=== PATIENT | female | born 1955 ===

== ENCOUNTER 2021-01-19 10:41 | Outpatient (REF) | payer OTHER, SELFPAY ==
[2021-01-19 10:48] LABS: MANUAL DIFF FLAG NO
[2021-01-19 11:04] LABS: Basophils Absolute Auto 0.1 X10*3/uL (0.0-0.2); Basophils Percent Auto 0.9 % (0-2); Eosinophils Absolute Auto 2.1 X10*3/uL (0.0-0.4); Eosinophils Percent Auto 30.6 % (0-4); Hematocrit 30.9 % (37-47); Hemoglobin 10.6 g/dl (12.0-16.0); Imm Gran Abs Auto 0.02 X10*3/uL (0.00-0.03); Imm Gran Pct Auto 0.3 % (0.0-0.4); Lymphocytes Absolute Auto 0.7 X10*3/uL (1.2-4.9); Lymphocytes Percent Auto 10.3 % (20-40); Mean Corpuscular HGB Conc 34.3 g/dl (31.0-35.0); Mean Corpuscular Hemoglobin 32.9 pg (27.0-33.0); Mean Platelet Volume 9.7 fL (9.4-12.3); Monocytes Absolute Auto 0.7 X10*3/uL (0.1-1.2); Monocytes Percent Auto 10.9 % (2-11); Neutrophils Absolute Auto 3.2 X10*3/uL (2.0-8.3); Platelet Count 246 X10*3/uL (160-400); Red Blood Count 3.22 X10*6/uL (4.20-5.50); Red Cell Distribution Width 12.9 % (11.0-16.0); White Blood Count 6.8 X10*3/uL (4.8-10.8)
[2021-01-19 11:28] LABS: Glucose Urine UA NEG (NEG); Leukocyte Esterase Urine TRACE (NEG); Nitrite Urine NEG (NEG); Urine Blood NEG (NEG); Urine Ketones NEG (NEG); Urine Protein NEG (NEG-TRACE)
[2021-01-19 11:31] LABS: Appearance Urine HAZY; Color Urine YELLOW
[2021-01-19 11:40] LABS: Alanine Aminotransferase 10 U/L (0-31); Albumin Level 3.7 g/dL (3.5-5.0); Alkaline Phosphatase 77 U/L (39-117); Anion Gap 11 (12-20); Aspartate Amino Transferase 16 U/L (5-31); Bilirubin Total 0.6 mg/dL (0.0-1.0); Blood Urea Nitrogen 11 mg/dL (9-16); Calcium 8.6 mg/dL (8.4-10.2); Carbon Dioxide 27 mmol/L (22-29); Chloride 104 mmol/L (96-108); Cholesterol 203 mg/dL; Estimated Glomerular Filt Rate > 60; Glucose Fasting 94 mg/dL (60-99); HDL Cholesterol 61 mg/dL; LDL Cholesterol Calculated 131 mg/dl; Sodium 138 mmol/L (135-145); Total Protein 6.3 g/dL (6.5-8.0); Triglycerides 57 mg/dL
[2021-01-19 12:04] LABS: TSH reflex Free T4 5.62 uIU/mL (0.32-4.0); Vitamin D 25-OH Total 32.3 ng/mL (>30)
[2021-01-19 12:38] LABS: RBC Urine 0-2 /HPF (0); Renal Epithelial Cells Urine 3+ /LPF
[2021-01-19 12:42] LABS: Free T4 (Free Thyroxine) 0.78 ng/dL (0.71-1.85)
== END 2021-01-19 10:42 | disposition home or self-care (01) ==
LOC: HO.LNP 10:41
PROVIDERS: PCP Internal Medicine; Visit Provider Internal Medicine
DX: Z00.00 Encounter for general adult medical examination without abnormal findings (principal); E06.3 Autoimmune thyroiditis; E78.00 Pure hypercholesterolemia, unspecified
CPT/HCPCS: 80053; 80061; 81001; 81003; 82306; 84439; 84443; 85025

== ENCOUNTER 2021-07-21 10:23 | Outpatient (REF) | payer MEDICARE, SELFPAY ==
[2021-07-21 11:52] LABS: Free T4 (Free Thyroxine) 0.93 ng/dL (0.71-1.85)
== END 2021-07-21 10:24 | disposition home or self-care (01) ==
LOC: HO.LNP 10:23
PROVIDERS: Visit Provider Internal Medicine
DX: E06.3 Autoimmune thyroiditis (principal)
CPT/HCPCS: 84439; 84443

== ENCOUNTER 2021-08-01 14:54 | Outpatient (REF) | payer MEDICARE, SELFPAY ==
[2021-08-01 14:56] LABS: MANUAL DIFF FLAG NO
[2021-08-01 15:10] LABS: Basophils Percent Auto 0.8 % (0-2); Eosinophils Absolute Auto 0.7 X10*3/uL (0.0-0.4); Eosinophils Percent Auto 14.8 % (0-4); Hematocrit 33.1 % (37-47); Hemoglobin 11.3 g/dl (12.0-16.0); Imm Gran Abs Auto 0.01 X10*3/uL (0.00-0.03); Imm Gran Pct Auto 0.2 % (0.0-0.4); Lymphocytes Absolute Auto 0.9 X10*3/uL (1.2-4.9); Lymphocytes Percent Auto 19.1 % (20-40); Mean Corpuscular HGB Conc 34.1 g/dl (31.0-35.0); Mean Corpuscular Hemoglobin 31.7 pg (27.0-33.0); Mean Platelet Volume 9.1 fL (9.4-12.3); Monocytes Absolute Auto 0.5 X10*3/uL (0.1-1.2); Monocytes Percent Auto 9.9 % (2-11); Neutrophils Absolute Auto 2.7 X10*3/uL (2.0-8.3); Neutrophils Percent Auto 55.2 % (45-73); Platelet Count 256 X10*3/uL (160-400); Red Blood Count 3.56 X10*6/uL (4.20-5.50); White Blood Count 4.9 X10*3/uL (4.8-10.8)
[2021-08-01 15:49] LABS: Iron 116 mcg/dL (30-160); Percent Iron Saturation 36 % (15-50); Total Iron Binding Capacity 320 mcg/dL (228-428); Unsaturated Iron Binding 204 ug/dL
== END 2021-08-01 14:55 | disposition home or self-care (01) ==
LOC: HO.LNP 14:54
PROVIDERS: Visit Provider Internal Medicine
DX: D64.9 Anemia, unspecified (principal)
CPT/HCPCS: 83540; 85025

== ENCOUNTER 2021-10-19 10:33 | Outpatient (REF) | payer MEDICARE, SELFPAY ==
[2021-10-19 10:37] LABS: MANUAL DIFF FLAG NO
[2021-10-19 10:59] LABS: Basophils Percent Auto 0.8 % (0-2); Eosinophils Absolute Auto 0.5 X10*3/uL (0.0-0.4); Hematocrit 36.3 % (37.0-47.0); Hemoglobin 12.4 g/dl (12.0-16.0); Imm Gran Abs Auto 0.02 X10*3/uL (0.00-0.03); Imm Gran Pct Auto 0.4 % (0.0-0.4); Lymphocytes Absolute Auto 1.1 X10*3/uL (1.2-4.9); Lymphocytes Percent Auto 21.8 % (20-40); Mean Corpuscular HGB Conc 34.2 g/dl (31.0-35.0); Mean Corpuscular Hemoglobin 32.2 pg (27.0-33.0); Mean Corpuscular Volume 94.3 fL (80.0-98.0); Mean Platelet Volume 9.4 fL (9.4-12.3); Monocytes Absolute Auto 0.6 X10*3/uL (0.1-1.2); Monocytes Percent Auto 11.4 % (2-11); Neutrophils Absolute Auto 2.7 x10*3/uL (2.0-8.3); Neutrophils Percent Auto 54.6 % (45-73); Platelet Count 254 X10*3/uL (160-400); Red Blood Count 3.85 X10*6/uL (4.20-5.50); Red Cell Distribution Width 11.9 % (11.0-16.0); White Blood Count 4.9 X10*3/uL (4.8-10.8)
[2021-10-19 11:08] LABS: Estimated Average Glucose 94 mg/dL; Hemoglobin A1C 101.8975 umol/L; Hemoglobin A1c % 4.9 %
[2021-10-19 11:16] LABS: Iron 84 mcg/dL (30-160); Percent Iron Saturation 25 % (15-50); Total Iron Binding Capacity 334 mcg/dL (228-428); Unsaturated Iron Binding 250 ug/dL
== END 2021-10-19 10:34 | disposition home or self-care (01) ==
LOC: HO.LNP 10:33
PROVIDERS: Visit Provider Internal Medicine
DX: D50.9 Iron deficiency anemia, unspecified (principal)
CPT/HCPCS: 83036; 83540; 85025

== ENCOUNTER 2022-01-22 11:26 | Outpatient (REF) | payer MEDICARE, SELFPAY ==
[2022-01-22 11:29] LABS: MANUAL DIFF FLAG NO
[2022-01-22 11:39] LABS: Basophils Percent Auto 0.9 % (0-2); Eosinophils Absolute Auto 0.5 X10*3/uL (0.0-0.4); Eosinophils Percent Auto 10.4 % (0-4); Hematocrit 35.5 % (37.0-47.0); Hemoglobin 11.6 g/dl (12.0-16.0); Imm Gran Abs Auto 0.01 X10*3/uL (0.00-0.03); Imm Gran Pct Auto 0.2 % (0.0-0.4); Lymphocytes Percent Auto 23.6 % (20-40); Mean Corpuscular HGB Conc 32.7 g/dl (31.0-35.0); Mean Corpuscular Volume 98.1 fL (80.0-98.0); Mean Platelet Volume 9.8 fL (9.4-12.3); Monocytes Absolute Auto 0.6 X10*3/uL (0.1-1.2); Monocytes Percent Auto 13.6 % (2-11); Neutrophils Absolute Auto 2.3 x10*3/uL (2.0-8.3); Neutrophils Percent Auto 51.3 % (45-73); Platelet Count 233 X10*3/uL (160-400); Red Blood Count 3.62 X10*6/uL (4.20-5.50); Red Cell Distribution Width 11.9 % (11.0-16.0); White Blood Count 4.4 X10*3/uL (4.8-10.8)
[2022-01-22 11:56] LABS: Appearance Urine CLEAR; Color Urine YELLOW; Glucose Urine UA NEG (NEG); Leukocyte Esterase Urine 3+ (NEG); Nitrite Urine NEG (NEG); Specific Gravity - Urine 1.015 (1.005-1.025); Urine Blood TRACE (NEG); Urine Ketones NEG (NEG); Urine Protein NEG (NEG-TRACE)
[2022-01-22 11:58] LABS: Alanine Aminotransferase 11 U/L (0-31); Albumin Level 3.8 g/dL (3.5-5.0); Alkaline Phosphatase 98 U/L (39-117); Anion Gap 9 (12-20); Aspartate Amino Transferase 16 U/L (5-31); Bilirubin Total 0.6 mg/dL (0.0-1.0); Blood Urea Nitrogen 14 mg/dL (9-16); Carbon Dioxide 27 mmol/L (22-29); Chloride 106 mmol/L (96-108); Cholesterol 234 mg/dL; Estimated Glomerular Filt Rate > 60; Glucose Fasting 99 mg/dL (60-99); HDL Cholesterol 71 mg/dL; Iron 134 mcg/dL (30-160); LDL Cholesterol Calculated 151 mg/dl; Percent Iron Saturation 43 % (15-50); Potassium 4.3 mmol/L (3.3-5.1); Sodium 138 mmol/L (135-145); Total Iron Binding Capacity 311 mcg/dL (228-428); Total Protein 6.5 g/dL (6.5-8.0); Triglycerides 61 mg/dL; Unsaturated Iron Binding 177 ug/dL
[2022-01-22 12:07] LABS: TSH reflex Free T4 3.17 uIU/mL (0.32-4.0)
[2022-01-22 12:29] LABS: Bacteria Urine 1+ /LPF; Squamous Epithelial Cell Urine 1+ /LPF; WBC Clumps Urine NOTED; WBC Urine 30-49 /HPF (0-4)
[2022-01-22 12:30] LABS: Oval Fat Bodies Urine NOTED
== END 2022-01-22 11:27 | disposition home or self-care (01) ==
LOC: HO.LNP 11:26
PROVIDERS: PCP Internal Medicine; Visit Provider Internal Medicine
DX: Z00.00 Encounter for general adult medical examination without abnormal findings (principal); E78.00 Pure hypercholesterolemia, unspecified; E06.3 Autoimmune thyroiditis; D50.9 Iron deficiency anemia, unspecified
CPT/HCPCS: 80053; 80061; 81001; 83540; 84443; 85025

== ENCOUNTER → 2023-01-07 10:03 | Outpatient (BNVA) | payer MEDICARE, SELFPAY | PROVIDERS: PCP Internal Medicine; Referring Provider Internal Medicine; Visit Provider Surgery | DX: S30.861A Insect bite (nonvenomous) of abdominal wall, initial encounter (principal) | CPT/HCPCS: 10120; 11400; 99202 ==

== ENCOUNTER 2023-01-07 10:48 | Outpatient (REF) | payer MEDICARE, SELFPAY | END 2023-01-07 10:49 | disposition home or self-care (01) | LOC: HO.LNP 10:48 | PROVIDERS: Visit Provider Internal Medicine | DX: Z13.89 Encounter for screening for other disorder (principal) | CPT/HCPCS: 87798 ==

== ENCOUNTER → 2023-01-16 11:28 | Outpatient (BNVA) | payer MEDICARE, SELFPAY | PROVIDERS: PCP Internal Medicine; Visit Provider Surgery ==

== ENCOUNTER 2023-02-01 11:55 | Outpatient (REF) | payer MEDICARE, SELFPAY ==
[2023-02-01 11:58] LABS: MANUAL DIFF FLAG NO
[2023-02-01 12:22] LABS: Basophils Absolute Auto 0.1 X10*3/uL (0.0-0.2); Basophils Percent Auto 1.2 % (0-2); Eosinophils Absolute Auto 0.4 X10*3/uL (0.0-0.4); Eosinophils Percent Auto 7.1 % (0-4); Hemoglobin 12.4 g/dl (12.0-16.0); Imm Gran Abs Auto 0.01 X10*3/uL (0.00-0.03); Imm Gran Pct Auto 0.2 % (0.0-0.4); Lymphocytes Absolute Auto 1.6 X10*3/uL (1.2-4.9); Lymphocytes Percent Auto 30.9 % (20-40); Mean Corpuscular HGB Conc 33.5 g/dl (31.0-35.0); Mean Corpuscular Volume 95.4 fL (80.0-98.0); Mean Platelet Volume 9.7 fL (9.4-12.3); Monocytes Absolute Auto 0.6 X10*3/uL (0.1-1.2); Monocytes Percent Auto 10.9 % (2-11); Neutrophils Absolute Auto 2.6 x10*3/uL (2.0-8.3); Neutrophils Percent Auto 49.7 % (45-73); Platelet Count 260 X10*3/uL (160-400); Red Blood Count 3.88 X10*6/uL (4.20-5.50); Red Cell Distribution Width 11.9 % (11.0-16.0); White Blood Count 5.2 X10*3/uL (4.8-10.8)
[2023-02-01 12:42] LABS: Alanine Aminotransferase 13 U/L (0-31); Albumin Level 3.8 g/dL (3.5-5.0); Alkaline Phosphatase 77 U/L (39-117); Anion Gap 12 (12-20); Aspartate Amino Transferase 18 U/L (5-31); Bilirubin Total 0.9 mg/dL (0.0-1.0); Blood Urea Nitrogen 10 mg/dL (9-16); Calcium 8.9 mg/dL (8.4-10.2); Carbon Dioxide 28 mmol/L (22-29); Chloride 108 mmol/L (96-108); Cholesterol 280 mg/dL; Estimated Glomerular Filt Rate > 60; Glucose Fasting 95 mg/dL (60-99); HDL Cholesterol 71 mg/dL; Iron 124 mcg/dL (30-160); LDL Cholesterol Calculated 193 mg/dl; Percent Iron Saturation 45 % (15-50); Potassium 4.5 mmol/L (3.3-5.1); Sodium 143 mmol/L (135-145); Total Iron Binding Capacity 274 mcg/dL (228-428); Total Protein 6.3 g/dL (6.5-8.0); Triglycerides 80 mg/dL; Unsaturated Iron Binding 150 ug/dL
[2023-02-01 12:59] LABS: TSH reflex Free T4 5.03 uIU/mL (0.32-4.0)
== END 2023-02-01 11:56 | disposition home or self-care (01) ==
LOC: HO.LNP 11:55
PROVIDERS: Visit Provider Internal Medicine
DX: Z00.00 Encounter for general adult medical examination without abnormal findings (principal); E78.00 Pure hypercholesterolemia, unspecified; E06.3 Autoimmune thyroiditis; D50.9 Iron deficiency anemia, unspecified
CPT/HCPCS: 80053; 80061; 83540; 84439; 84443; 85025

== ENCOUNTER 2023-02-04 15:53 | Outpatient (REF) | payer MEDICARE, SELFPAY ==
[2023-02-04 16:49] LABS: Appearance Urine Clear; Color Urine Yellow; Glucose Urine UA Negative (Negative); Leukocyte Esterase Urine Small (1+) (Negative); Nitrite Urine Negative (Negative); Specific Gravity - Urine <= 1.005 (1.005-1.025); UMIC TRIGGER UACC YES; Urine Blood Trace (Negative); Urine Ketones Negative (Negative); Urine Protein Negative (Neg-Trace)
[2023-02-04 16:58] LABS: Bacteria Urine Trace (None Seen); Hyaline Casts Urine 0-2 /LPF (0-2); RBC Urine 0-2 /HPF (0-2); Squamous Epithelial Cell Urine 0-2 /HPF (0-2); UACC Culture Trigger YES; WBC Urine 0-5 /HPF (0-5)
== END 2023-02-04 15:54 | disposition home or self-care (01) ==
LOC: HO.LNP 15:53
PROVIDERS: Visit Provider Internal Medicine
DX: M81.0 Age-related osteoporosis without current pathological fracture (principal); D50.9 Iron deficiency anemia, unspecified; E78.00 Pure hypercholesterolemia, unspecified; R82.90 Unspecified abnormal findings in urine
CPT/HCPCS: 81001; 87086

== ENCOUNTER 2023-03-07 11:01 | Outpatient (REF) | payer MEDICARE, SELFPAY ==
[2023-03-07 11:23] LABS: Appearance Urine Clear; Color Urine Yellow; Glucose Urine UA Negative (Negative); Leukocyte Esterase Urine Negative (Negative); Nitrite Urine Negative (Negative); Specific Gravity - Urine <= 1.005 (1.005-1.025); Urine Blood Negative (Negative); Urine Ketones Negative (Negative); Urine Protein Negative (Neg-Trace)
[2023-03-07 11:27] LABS: Bacteria Urine None Seen (None Seen); Hyaline Casts Urine 0-2 /LPF (0-2); RBC Urine 0-2 /HPF (0-2); Squamous Epithelial Cell Urine 0-2 /HPF (0-2); WBC Urine 0-5 /HPF (0-5)
== END 2023-03-07 11:02 | disposition home or self-care (01) ==
LOC: HO.LNP 11:01
PROVIDERS: Visit Provider Internal Medicine
DX: R31.9 Hematuria, unspecified (principal)
CPT/HCPCS: 81001

== ENCOUNTER 2023-04-08 10:35 | Outpatient (REF) | payer MEDICARE, SELFPAY ==
[2023-04-08 11:35] LABS: Cholesterol 281 mg/dL; HDL Cholesterol 75 mg/dL; LDL Cholesterol Calculated 192 mg/dl; Triglycerides 72 mg/dL
[2023-04-08 11:51] LABS: TSH reflex Free T4 4.08 uIU/mL (0.32-4.0)
[2023-04-08 12:56] LABS: Free T4 (Free Thyroxine) 0.87 ng/dL (0.71-1.85)
== END 2023-04-08 10:36 | disposition home or self-care (01) ==
LOC: HO.LNP 10:35
PROVIDERS: Visit Provider Internal Medicine
DX: E78.00 Pure hypercholesterolemia, unspecified (principal); E06.3 Autoimmune thyroiditis
CPT/HCPCS: 80061; 84439; 84443

== ENCOUNTER 2024-01-30 11:10 | Outpatient (REF) | payer MEDICARE, SELFPAY ==
[2024-01-30 11:15] LABS: MANUAL DIFF FLAG NO
[2024-01-30 12:15] LABS: Appearance Urine Clear; Color Urine Yellow; Glucose Urine UA Negative (Negative); Leukocyte Esterase Urine Moderate (2+) (Negative); Nitrite Urine Negative (Negative); Specific Gravity - Urine 1.015 (1.005-1.025); UMIC TRIGGER UACC YES; Urine Blood Negative (Negative); Urine Ketones Negative (Negative); Urine Protein Negative (Neg-Trace)
[2024-01-30 12:18] LABS: Basophils Absolute Auto 0.1 X10*3/uL (0.0-0.2); Eosinophils Absolute Auto 0.4 X10*3/uL (0.0-0.4); Eosinophils Percent Auto 8.4 % (0-4); Hematocrit 35.7 % (37.0-47.0); Hemoglobin 12.1 g/dl (12.0-16.0); Imm Gran Abs Auto 0.01 X10*3/uL (0.00-0.03); Imm Gran Pct Auto 0.2 % (0.0-0.4); Lymphocytes Absolute Auto 1.7 X10*3/uL (1.2-4.9); Lymphocytes Percent Auto 33.3 % (20-40); Mean Corpuscular HGB Conc 33.9 g/dl (31.0-35.0); Mean Corpuscular Hemoglobin 32.3 pg (27.0-33.0); Mean Corpuscular Volume 95.2 fL (80.0-98.0); Mean Platelet Volume 9.7 fL (9.4-12.3); Monocytes Absolute Auto 0.6 X10*3/uL (0.1-1.2); Monocytes Percent Auto 11.1 % (2-11); Neutrophils Absolute Auto 2.4 x10*3/uL (2.0-8.3); Platelet Count 279 X10*3/uL (160-400); Red Blood Count 3.75 X10*6/uL (4.20-5.50); White Blood Count 5.2 X10*3/uL (4.8-10.8)
[2024-01-30 12:21] LABS: Bacteria Urine None Seen (None Seen); Hyaline Casts Urine 0-2 /LPF (0-2); RBC Urine 0-2 /HPF (0-2); Squamous Epithelial Cell Urine 0-2 /HPF (0-2); UACC Culture Trigger YES
[2024-01-30 13:20] LABS: Alanine Aminotransferase 15 U/L (0-31); Albumin Level 3.9 g/dL (3.5-5.0); Alkaline Phosphatase 73 U/L (39-117); Anion Gap 8 (12-20); Aspartate Amino Transferase 22 U/L (5-31); Bilirubin Total 0.9 mg/dL (0.0-1.0); Blood Urea Nitrogen 12 mg/dL (9-16); Calcium 9.9 mg/dL (8.4-10.2); Carbon Dioxide 30 mmol/L (22-29); Chloride 105 mmol/L (96-108); Cholesterol 240 mg/dL (<200); Estimated Glomerular Filt Rate > 60; Glucose Fasting 96 mg/dL (60-99); HDL Cholesterol 67 mg/dL (>40); Iron 148 mcg/dL (30-160); LDL Cholesterol Calculated 161 mg/dL (<100); Percent Iron Saturation 54 % (15-50); Potassium 4.1 mmol/L (3.3-5.1); Sodium 139 mmol/L (135-145); Total Iron Binding Capacity 274 mcg/dL (228-428); Total Protein 6.7 g/dL (6.5-8.0); Triglycerides 64 mg/dL (<150); Unsaturated Iron Binding 126 ug/dL
[2024-01-30 13:24] LABS: TSH reflex Free T4 3.61 uIU/mL (0.32-4.0)
== END 2024-01-30 11:11 | disposition home or self-care (01) ==
LOC: HO.LNP 11:10
PROVIDERS: Visit Provider Internal Medicine
DX: Z00.00 Encounter for general adult medical examination without abnormal findings (principal); E06.3 Autoimmune thyroiditis; D50.9 Iron deficiency anemia, unspecified; E78.00 Pure hypercholesterolemia, unspecified; R82.90 Unspecified abnormal findings in urine
CPT/HCPCS: 80053; 80061; 81001; 83540; 84443; 85025; 87086

== ENCOUNTER 2025-02-04 10:09 | Outpatient (REF) | payer MEDICARE, SELFPAY ==
[2025-02-04 10:12] LABS: MANUAL DIFF FLAG NO
[2025-02-04 11:08] LABS: Basophils Percent Auto 0.8 % (0-2); Eosinophils Absolute Auto 0.4 X10*3/uL (0.0-0.4); Eosinophils Percent Auto 8.1 % (0-4); Hemoglobin 12.4 g/dl (12.0-16.0); Imm Gran Abs Auto 0.02 X10*3/uL (0.00-0.03); Imm Gran Pct Auto 0.4 % (0.0-0.4); Lymphocytes Absolute Auto 1.5 X10*3/uL (1.2-4.9); Lymphocytes Percent Auto 30.2 % (20-40); Mean Corpuscular HGB Conc 34.4 g/dl (31.0-35.0); Mean Platelet Volume 9.2 fL (9.4-12.3); Monocytes Absolute Auto 0.5 X10*3/uL (0.1-1.2); Monocytes Percent Auto 9.3 % (2-11); Neutrophils Absolute Auto 2.6 x10*3/uL (2.0-8.3); Neutrophils Percent Auto 51.2 % (45-73); Platelet Count 274 X10*3/uL (160-400); Red Blood Count 3.87 X10*6/uL (4.20-5.50); Red Cell Distribution Width 12.1 % (11.0-16.0); White Blood Count 5.1 X10*3/uL (4.8-10.8)
[2025-02-04 11:16] LABS: Appearance Urine Clear; Color Urine Yellow; Glucose Urine UA Negative (Negative); Leukocyte Esterase Urine Small (1+) (Negative); Nitrite Urine Negative (Negative); UMIC TRIGGER UACC YES; Urine Blood Negative (Negative); Urine Ketones Negative (Negative); Urine Protein Negative (Neg-Trace)
[2025-02-04 11:40] LABS: Alanine Aminotransferase 15 U/L (0-31); Albumin Level 3.8 g/dL (3.5-5.0); Alkaline Phosphatase 66 U/L (39-117); Anion Gap 9 (12-20); Aspartate Amino Transferase 25 U/L (5-31); Bilirubin Total 0.6 mg/dL (0.0-1.0); Blood Urea Nitrogen 12 mg/dL (9-16); Calcium 9.1 mg/dL (8.4-10.2); Carbon Dioxide 27 mmol/L (22-29); Chloride 106 mmol/L (96-108); Cholesterol 264 mg/dL (<200); Estimated Glomerular Filt Rate > 60; Glucose Fasting 94 mg/dL (60-99); HDL Cholesterol 69 mg/dL (>40); Iron 97 mcg/dL (30-160); LDL Cholesterol Calculated 180 mg/dL (<100); Percent Iron Saturation 38 % (15-50); Potassium 4.3 mmol/L (3.3-5.1); Sodium 138 mmol/L (135-145); TSH reflex Free T4 3.85 uIU/mL (0.32-4.0); Total Iron Binding Capacity 258 mcg/dL (228-428); Total Protein 6.8 g/dL (6.5-8.0); Triglycerides 76 mg/dL (<150); Unsaturated Iron Binding 161 ug/dL
--- OUTSIDE RECORDS SUMMARY | 2025-02-04 11:42 | XMS_ITS ---
Author Organization Barrera Wood MD Address [address] [place], [place] [id number] Care Team Providers Care Advisory Services Associate Name Role Phone IsraelIrvinn Primary Care Provider [phone] Results Component Value Reference Range Notes Complete Blood Count Auto Di ff (Not yet reviewed by provider) Interpretation: Performing Lab:[facility], [address] [place] [phone] Notes/Report: White Blood Count 5.1 4.8-10.8 X10*3/uL Red Blood Count 3.87 4.20-5.50 X10*6/uL Hemoglobin 12.4 12.0-16.0 g/dl Hematocrit 36.0 37.0-47.0 % Mean Corpuscular Volume 93.0 80.0-98.0 fL Mean Corpuscular Hemoglobin 32.0 27.0-33.0 pg Mean Corpuscular HGB Conc 34.4 31.0-35.0 g/dl Red Cell Distribution Width 12.1 11.0-16.0 % Platelet Count 274 160-400 X10*3/uL Mean Platelet Volume 9.2 9.4-12.3 fL Neutrophils Percent Auto 51.2 45-73 % Imm Gran Pct Auto 0.4 0.0-0.4 % Lymphocytes Percent Auto 30.2 20-40 % Monocytes Percent Auto 9.3 2-11 % Eosinophils Percent Auto 8.1 0-4 % Basophils Percent Auto 0.8 0-2 % NRBC Pct Auto 0.0 0.0-0.2 /100WBC Neutrophils Absolute Auto 2.6 2.0-8.3 x10*3/u L Imm Gran Abs Auto 0.02 0.00-0.03 X10*3/uL Lymphocytes Absolute Auto 1.5 1.2-4.9 X10*3/u L Monocytes Absolute Auto 0.5 0.1-1.2 X10*3/uL Eosinophils Absolute Auto 0.4 0.0-0.4 X10*3/u L Basophils Absolute Auto 0.0 0.0-0.2 X10*3/uL NRBC Abs Auto 0.000 0.0-0.012 X10*3/uL Comprehensive [place]. Panel Fa st (Not yet reviewed by provider) Interpretation: Performing Lab:[facility], [address] [place] [phone] Notes/Report: Sodium 138 135-145 mmol/L Potassium 4.3 3.3-5.1 mmol/L Chloride 106 96-108 mmol/L Carbon Dioxide 27 22-29 mmol/L Anion Gap 9 12-20 Blood Urea Nitrogen 12 9-16 mg/dL Creatinine 0.65 0.5-1.4 mg/dL Estimated Glomerular Filt Rate > 60 Chronic Kidney Disease: Estimated GFR < 60 mL/min/1.73m2 Severe Kidney Disease: Estimated GFR < 15 mL/min/1.73m2 Glucose Fasting 94 60-99 mg/dL Calcium 9.1 8.4-10.2 mg/dL Bilirubin Total 0.6 0.0-1.0 mg/dL Aspartate Amino Transferase 25 5-31 U/L Alanine Aminotransferase 15 0-31 U/L Total Protein 6.8 6.5-8.0 g/dL Albumin Level 3.8 3.5-5.0 g/dL Alkaline Phosphatase 66 39-117 U/L IRON PROFILE (Not yet revie wed by provider) Interpretation: Performing Lab:[facility], [address] [place] [phone] Notes/Report: Iron 97 30-160 mcg/dL Total Iron Binding Capacity 258 228-428 mcg/d L Percent Iron Saturation 38 15-50 % Unsaturated Iron Binding 161 Lipid Panel (Not yet reviewe d by provider) Interpretation: Performing Lab:[facility], [address] [place] [phone] Notes/Report: Triglycerides 76 <150 mg/dL Desirable Triglyceride: less than 150 mg/dL Borderline High Triglyceride 150-199 mg/dL High Triglyceride: 200-499 mg/dL Very High Triglyceride: greater than or equal to 5OO mg/dL Cholesterol 264 <200 mg/dL Desirable Cholesterol: less than 200 mg/dL Borderline High Cholesterol: 200-239 mg/dL High Cholesterol: greater than 239 mg/dL LDL Cholesterol Calculated 180 <100 mg/dL Desirable LDL: less than 100 mg/dL Near Optimal/Above Optimal LDL: 110-129 mg/dL Borderline High LDL: 130-159 mg/dL High LDL: 160-189 mg/dL Very High LDL: greater than or equal to 190 mg/dL HDL Cholesterol 69 >40 mg/dL Desirable HDL: greater than 40 mg/dL Note: This HDL assay may give artificially low results in patients with liver disease. TSH reflex Free T4 (Not yet reviewed by provider) Interpretation: Performing Lab:[facility], [address] [place] [phone] Notes/Report: TSH reflex Free T4 3.85 0.32-4.0 uIU/mL REASON FOR VISIT yearly fasting labs Encounters Encounter Location Date Provider Diagnosis Barrera Wood MD [address] [place] [address] Drive [address] [place], [place] [phone] 02/04/2025 Barrera Wood Blood tests for rout ine general physical examination Z00.00 ; Pure hypercholesterolemia E78.00 ; Shane's thyroiditis E06.3 and Iron deficiency anemia, unspecified iron deficiency anemia type D50.9 Assessments Encounter Date Diagnosis (ICD Code) Assessment Notes Treatment Notes Treatment Clinical Notes Section Notes 02/04/2025 Blood tests for rout ine general physical examination (ICD-10 - Z00.00) 02/04/2025 Pure hypercholesterolemia (ICD-10 - E78.00) 02/04/2025 Shane's thyroidi tis (ICD-10 - E06.3) 02/04/2025 Iron deficiency anem ia, unspecified iron deficiency anemia type (ICD-10 - D50.9) Plan Of Treatment Pending Test Test Name Order Date Complete Blood Count Auto Diff Comprehensive [place]. Panel Fast IRON PROFILE 02/04/2025 Lipid Panel 02/04/2025 TSH reflex Free T4 02/04/2025 UA ClnCatch+Micro w/rflx Cult 02/04/2025 Next Appt Details Provider Name:Barrera Kilgore ier, 02/08/2025 01:00:00 PM, [address], [address], [place], [place], [phone], Progress Notes * Michelle YOU LDOB:1954 (69 yo F)Acc No.[id number]:02/04/2025 Progress Note Patient:?Michelle YOU L Provider:?Barrera Wood MD :1955???Age:69 Y???Sex:Female D ate:02/04/2025 Address:[address] [place], [place] [id number] Subjective: * Chief Complaints: * ???1. Yearly fasting labs. * Medical History:? Objective: * Vitals:? Assessment: * Assessment: 1.?Blood tests for routine g eneral physical examination - Z00.00 (Primary)???2.?Pure hypercholesterolemia - E78.00???3.?Shane's thyroiditis - E06.3???4.?Iron deficiency anemia, unspecified iron deficiency anemia type - D50.9??? Plan: * Treatment: 2.?Pure hypercholesterolemia ?LAB: Complete Blood Count Auto Diff (Collection Date & Time - 02/04/2025 07:00 AM) ?LAB: Comprehensive [place]. Panel Fast (Collection Date & Time - 02/04/2025 07:00 AM) ?LAB: IRON PROFILE (Collection Date & Time - 02/04/2025 07:00 AM) ?LAB: Lipid Panel (Collection Date & Time - 02/04/2025 07:00 AM) ?LAB: TSH reflex Free T4 (Collection Date & Time - 02/04/2025 07:00 AM) ?LAB: UA ClnCatch+Micro w/rflx Cult 3.?Shane's thyroiditis?LAB: Complete Blood Count Auto Diff (Collection Date & Time - 02/04/2025 07:00 AM) ?LAB: Comprehensive [place]. Panel Fast (Collection Date & Time - 02/04/2025 07:00 AM) ?LAB: IRON PROFILE (Collection Date & Time 02/04/2025 07:00 AM) ?LAB: Lipid Panel (Collection Date & Time 02/04/2025 07:00 AM) ?LAB: TSH reflex Free T4 (Collection Date & Time - 02/04/2025 07:00 AM) ?LAB: UA ClnCatch+Micro w/rflx Cult 4.?Iron deficiency anemia, u nspecified iron deficiency anemia type?LAB: Complete Blood Count Auto Diff (Collection Date & Time - 02/04/2025 07:00 AM) ?LAB: Comprehensive [place]. Panel Fast (Collection Date & Time 02/04/2025 07:00 AM) ?LAB: IRON PROFILE (Collection Date & Time 02/04/2025 07:00 AM) ?LAB: Lipid Panel (Collection Date & Time 02/04/2025 07:00 AM) ?LAB: TSH reflex Free T4 (Collection Date & Time - 02/04/2025 07:00 AM) ?LAB: UA ClnCatch+Micro w/rflx Cult * Procedure Codes:?97016 VENIP UNCT, ROUTINE* * * The named appointment provid er may or may not be the originator of this progress note, and it is not deemed complete until electronically signed by the appointment provider. Sign off status: Pending * Provider:?Barrera Wood MD Date:?0 02/04/2025 Generated for Tara haile/Henry/Inezsmitting on:?02/04/2025 11:42 AM EDT
--- OUTSIDE RECORDS SUMMARY | 2025-02-04 11:42 | XMS_ITS ---
Author Organization Barrera Wood MD Address [address] [place], [place] [phone] Care Team Providers Care Tax Auditor Name Role Phone Israel Barrera Primary Care Provider Allergies No Known Allergies REASON FOR VISIT stomach issues diarrhea x 5 days Just returned from [place], Video [phone], Tested for Covid yesterday negative Medications Medication SIG (Take, Route, Frequency, Duration) Notes Start Date End Date Status Vitamin K2 100 MCG as directed Orally Active Magnesium 250 MG 1 tablet with a meal Orally Once a day for 30 day(s) Active Paxlovid (300/100) 20 x 150 MG & 10 x 100MG 3 tablets Orally Twice a day for 5 days 04/28/2024 Not-Taking Estrace 0.1 MG/GM as directed Vaginal Not-Taking Reclast 5 MG/100ML as directed Intravenous Active Calcium + D 600-200 MG-UNIT 1 tablet with food Orally Twice a day Active Vitamin B12 1000 MCG 1 tablet Orally Onc e a day for 30 day(s) Active Vitamin D 1000 UNIT 1 tablet Orally Once a day for 30 day(s) Active Vital Signs Height 61 in 11/10/2024 Weight 120 lbs 11/10/2024 BMI 22.67 kg/m2 11/10/2024 weight at home is 121 BP not taken no temp Encounters Encounter Location Date Provider Diagnosis Barrera Wood MD [address] [place] [address] [place] [phone] 11/10/2024 Barrera Wood Acute diarrhea R19.7 Assessments Encounter Date Diagnosis (ICD Code) Assessment Notes Treatment Notes Treatment Clinical Notes Section Notes 11/10/2024 Acute diarrhea (ICD-10 - R19.7) is getting better so no treatment needed and no cultures necessary although would not go to cooking class in 3 days Plan Of Treatment Treatment Notes Assessment Notes Acute diarrhea is getting better so no treatment needed and no cultures necessary although would not go to cooking class in 3 days Next Appt Details Provider Name:Barrera Kilgore ier, 02/08/2025 01:00:00 PM, [address] [place] [address], [place] [address], [place], [place], [phone], Progress Notes * Michelle YOU LDOB:1954 (69 yo F)Acc No.[id number]:11/10/2024 Patient:?Michelle YOU Provider:?Barrera Wood MD :1955???Age:69 Y???Sex:Female D ate:11/10/2024 Address:[address] [place], [place] [phone] Subjective: * Chief Complaints: * ???stomach issues diarrhea x 5 days Just returned from [facility] [phone] for Covid yesterday negative * HPI: ???Symptom(s):?Telehealth?Location of provider rendering services:?[address] [place] [address], Suite [facility],?Location of patient:?at address listed in demographics for today's visit,?Patient identification confirmed using:?Name, ,?Telehealth method:?Video conference where patient is visible to the provider of care,?Consent:?Patient verbally consented to treatment, Patient verbally consented to billing insurance company, Patient informed of any privacy concerns related to method of visit,?Total time spend talking with patient (minutes)?16.?patient is a 69 yo female video telehealth visit,? just [facility]. diarrhea slowly getting better. everyone else got covid.? is getting better.? there is a lot of norovirus. * ROS:?General/Constitutional:?Denies?Chills.?Denies?Fatigue.?Denies?Fever.?Denies?Headache.?ENT:?Patient denies?decreased sense of smell, any loss of taste, sore throat.?Denies?Sore throat.?Respiratory:?Denies?Cough.?Denies?Shortness of breath at rest.?Denies?Shortness of breath with exertion.?Gastrointestinal:?Denies?Abdominal pain.?Denies?Blood in stool.?Admits?Change in bowel habits.?Denies?Constipation.?Denies?Diarrhea.?Denies?Nausea.?Denies?Vomiting.?Musculoskeletal:?Patient denies?muscle aches.?Peripheral Vascular:?Patient denies?red and blue toes.? * Medical History:? * Surgical History:? * Hospitalization/Major Diagno stic Procedure:? * Medications:?TakingVitamin K 2 100 MCG Capsule as directed Orally Magnesium 250 MG Tablet 1 tablet with a meal Orally Once a day Vitamin B12 1000 MCG Tablet Extended Release 1 tablet Orally Once a day Vitamin D 1000 UNIT Tablet 1 tablet Orally Once a day Calcium + D 600-200 MG-UNIT Tablet 1 tablet with food Orally Twice a day Reclast 5 MG/100ML Solution as directed Intravenous Taking Vitamin K2 100 MCG Capsule as directed Orally Taking Magnesium 250 MG Tablet 1 tablet with a meal Orally Once a day Taking Vitamin B12 1000 MCG Tablet Extended Release 1 tablet Orally Once a day Taking Vitamin D 1000 UNIT Tablet 1 tablet Orally Once a day Taking Calcium + D 600-200 MG-UNIT Tablet 1 tablet with food Orally Twice a day Taking Reclast 5 MG/100ML Solution as directed Intravenous Not-Taking/PRNPaxlovid (300/100) 20 x 150 MG & 10 x 100MG Tablet Therapy Pack 3 tablets Orally Twice a day Estrace 0.1 MG/GM Cream as directed Vaginal Not-Taking/PRN Paxlovid (300/100) 20 x 150 MG & 10 x 100MG Tablet Therapy Pack 3 tablets Orally Twice a day Not-Taking/PRN Estrace 0.1 MG/GM Cream as directed Vaginal * Allergies:?N.K.D.A.yes[Aller gies Verified] Objective: * Vitals:?Ht: 61, Wt: 120, BMI :22.67, Wt-k.43. weight at home is 121? BP? not taken? ?no temp. * Examination: ???General Examination: ?GENERAL APPEARANCE:?alert, well hydrated, in no distress.? Assessment: * Assessment: 1.?Acute diarrhea - R19.7 (P rimary)??? Plan: * Treatment: * Procedure Codes:? * * Sign off status: Completed true * Provider:?Barrera Wood MD Date:?0 11/10/2024 Generated for Tara haile/Henry/Carrieitting on:?02/04/2025 11:42 AM EDT History and Physical Notes * HPI (History of Present Illness) Category Sub-Category Detail Notes Category Not es Symptom(s) Telehealth Location of [facility] rendering services:: [address], [address] patient is a 69 yo female video telehealth visit, [facility]. diarrhea slowly getting better. everyone else got covid. is getting better. there is a lot of norovirus Location of patient:: at address listed in demographics for today's visit Patient identification confirmed using:: Name, Telehealth method:: Video co nference where patient is visible to the provider of care Consent:: Patient verbally c onsented to treatment, Patient verbally consented to billing insurance company, Patient informed of any privacy concerns related to method of visit Total time spend talking with patient (m inutes): 16 Examination Category Sub-Category Detail Notes Category Not es General Examination GENERAL APPEARANCE: alert, w ell hydrated, in no distress
--- OUTSIDE RECORDS SUMMARY | 2025-02-04 11:43 | XMS_ITS ---
Author Organization Barrera Wood MD Address [address] [place] [phone] Care Team Providers Care Geophysical Prospecting Permit Agent Name Role Phone Barrera Wood Primary Care Provider REASON FOR VISIT Paxlovid for travel Medications Medication SIG (Take, Route, Frequency, Duration) Notes Start Date End Date Status Paxlovid (300/100) 20 x 150 MG & 10 x 100MG 3 tablets Orally Twice a day for 5 days 04/28/2024 Active Encounters Encounter Location Date Provider Diagnosis Barrera Wood MD [address] [place], [place] [phone] 09/23/2024 Barrera Wood Plan Of Treatment Medication Medication Name Sig Start Date Stop Date Notes Paxlovid (300/100) 20 x 150 MG & 10 x 100MG 3 tablets Orally Twice a day for 5 days 04/28/2024 Next Appt Details Provider Name:Barrera dennison, 02/08/2025 01:00:00 PM, [address], [address] [place] [address] [place], [phone], Progress Notes * Michelle YOU LDOB:1954 (69 yo F)Acc No.[id number]:09/23/2024 Patient:?Michelle You :1955???Age:69 Y???Sex:Female Address:[address] [place] [phone] * Refills? Continue Paxlovid (300/100) Tablet Therapy Pack, 20 x 150 MG & 10 x 100MG, Orally, 30 Tablet, 3 tablets, Twice a day, 5 days * true * Date:? Generated for Tara haile/Henry/Carrieitting on:?02/04/2025 11:43 AM EDT
--- OUTSIDE RECORDS SUMMARY | 2025-02-04 11:43 | XMS_ITS | Clinical Summary ---
Author Organization [facility] Address [address] [place] [address] Care Team Providers Care Senior Strategy Analyst Name Role Phone Barrera Wood Primary Care Provider [phone] Allergies No known active allergies Medications zoledronic acid/mannitol-w ater (RECLAST INTRAVENOU) 07/16/2022 Active BinaxNOW COVID-19 Ag Self Test kit TEST DIRECTED TODAY 09/17/2022 Active calcium carbonate-vitam in D3 (Calcium 600 + D,3,) 600 mg-5 mcg (200 unit) capsule every 12 (twelve) hours. Active estradioL (ESTRACE) 0.01 % (0.1 mg/gram) vaginal cream See admin instructions. Active cholecalciferol (VITAMIN D3) 1,000 unit tablet Take 1,000 Units by mouth daily. Active DOCOSAHEXAENOIC ACID ORAL Take 2 capsules by mouth daily. Active Active Problems Problem Noted Date Diagnosed Date Bilateral carpal tunnel syndrome 04/03/2023 Shane's thyroiditis 04/03/2023 Iron deficiency anemia 04/03/2023 Malignant neoplasm of corpus uteri, except isthm us 04/03/2023 Meralgia paresthetica 04/03/2023 Osteoporosis 04/03/2023 Pure hypercholesterolemia 04/03/2023 Immunizations Immunization Administration Dates Next Due Covid-19, Pfizer, mRNA, [place] valent, PF 30 mcg/0.3 mL dose (for ages 12 and older) 12/30/2020 Hepatitis A Vaccine, Adult Dosage 06/26/2021, Hepatitis B vaccine (HEPLISA V-B) vaccine 0.5 mL IM 03/27/2023,02/22/2023 INFLUENZA, SPLIT VIRUS, TRIVALENT, PF ,07/21/2021,08/01/2020,07/08,08/20/2018,08/02/2016 Influenza Split 08/02/2016, 4,08/28/2013,08/22,08/03/2011 Influenza Virus Vaccine, Spl it Virus (Incl. Purified Surface Antigen)-Retired CODE 08/19/2017 Influenza, Injectable, [place] Canine Kidney, Preservative Free, Quadrivalent 07/08/2019 Influenza, Injectable, Quadr ivalent, Preservative Free 07/24/2022,10/20/2015 Measles, Mumps, and Rubella Vaccine 07/08/2019,0 07/08/2019 Poliovirus Vaccine, Inactivated 04/03/2023 Tetanus Toxoid, Reduced Diph theria Toxoid, and Acellular Pertussis Vaccine, Adsorbed 11/11/2018,11/11/2018 Trivalent Poliovirus Vaccine , Live, Oral 12/27/1992 Typhoid Vaccine, Live, Oral 12/27/1992 Typhoid Vi Capsular Polysacc haride Vaccine 04/03/2023 Yellow Fever Vaccine 12/27/1992 Zoster Vaccine Recombinant 02/11/2023 Social History Tobacco Use Types Packs/Day Years Used Date Smoking Tobacco: Never Tobacco Cessation:Counseling Given: Not Answered Alcohol Use Standard Drinks/Week Comments Defer 0 (1 standard drink = 0.6 oz pur e alcohol) Comments Unknown Sex and Gender Information Value Date Recorded Sex Assigned at Female 04/01/2023 12:41 PM EDT Legal Sex Female 4:44 PM EDT Gender Identity Female 04/01/2023 12:41 PM EDT Sexual Orientation Choose not to disclose 2022 12:41 PM EDT Last Filed Vital Signs Vital Sign Reading Time Taken Comments Blood Pressure 100/65 04/03/2023 2:30 PM EDT Pulse 65 04/03/2023 2:30 PM EDT Temperature 36.6 ??C (97.9 ??F) 04/03/2023 2:30 PM ED T Respiratory Rate 18 04/03/2023 2:30 PM EDT Oxygen Saturation 98% 04/03/2023 2:30 PM EDT Inhaled Oxygen Concentration - - Weight 59.2 kg (130 lb 9.6 oz) 04/03/2023 2:30 P M EDT Height 152.4 cm (5') 04/03/2023 2:30 PM EDT Body Mass Index 25.51 04/03/2023 2:30 PM EDT Plan of Treatment Health Maintenance Due Date Last Done Comments Cologuard 1955 Colonoscopy 1955 Sigmoidoscopy 1955 Osteoporosis Screening 2006 Pneumococcal Vaccine: 50+ Ye ars (1 of 1 - PCV) 2006 Colon Cancer Screening 01/09/2019 FOBT / Fit Test 01/09/2019 01/09/2018 Zoster Vaccines (2 of 2) 04/08/2023 02/11/2023 COVID-19 Vaccine (2023-2 5 season) 2024 07/19/2022, 02/16/2022, 08/25/2021, Additional history exists Alcohol/Substance Use Screening 10/14/2024 Health Care Proxy Review 10/14/2024 Influenza Vaccine (Season Ended) 2025 07/24/2022, 07/24/2022, 07/21/2021, Additional history exists DTaP,Tdap,and Td Vaccines (3 - Td or Tdap) 11/11/2028 11/11/2018, 11/11/2018 RSV Vaccine (60+ years old a nd patients) (1 - 1-dose 75+ series) 2031 Mammogram Discontinued 02/06/2023, 01/13, 01/15/2022, Additional history exists Hepatitis B Vaccines Completed 03/27/2023, 02/23/20 23 Insurance BCBS MCR REPLACE PPO Care Teams Senior Strategy Analyst Relationship Specialty Start Date End Date Barrera Wood [address] [place] [address] [place] [address] PCP - General Internal Medicine 02/22/23
--- OUTSIDE RECORDS SUMMARY | 2025-02-04 11:43 | XMS_ITS | Referral Summary ---
Author Organization [facility] Address [address] [place] [address] Care Team Providers Care Hand Welt Butter Name Role Phone Barrera Wood Primary Care Provider [phone] Allergies No known active allergies Medications zoledronic [...] Administration Dates Next Due Covid-19, Pfizer, mRNA, [place] valent, PF 30 mcg/0.3 mL dose (for [...] 04/03/2023 2:30 PM EDT Plan of Treatment Not on file Insurance BCBS MCR REPLACE PPO Care Teams Hand Welt Butter Relationship Specialty Start Date End Date Barrera Wood [address] [place] [address] [place] [address] PCP - General Internal Medicine 02/22/23
--- OUTSIDE RECORDS SUMMARY | 2025-02-04 11:43 | XMS_ITS | Patient Health Record ---
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 Panel Fa st (Not yet reviewed by provider) Interpretation: Performing Lab:[facility], [address] [place] [phone] Notes/Report: Sodium 138 135-145 mmol/L Potassium 4.3 [...] 66 39-117 U/L IRON PROFILE (Not yet review ed by provider) Interpretation: Performing Lab:[facility], [address] [place] [phone] Notes/Report: Iron 97 30-160 mcg/dL Total Iron Binding Capacity 258 228-428 mcg/d L Percent Iron Saturation 38 15-50 % Unsaturated Iron Binding 161 Lipid Panel (Not yet reviewe d by provider) Interpretation: Performing Lab:[facility], [address] [place] [phone] Notes/Report: Triglycerides 76 <150 mg/dL Desirable Triglyceride: [...] (Not yet reviewed by provider) Interpretation: Performing Lab:[facility], [address] [place] [phone] Notes/Report: TSH reflex Free T4 3.85 0.32-4.0 uIU/mL Hold Gold (Not yet reviewed by provider) Interpretation: Performing Lab:[facility], [address] [place] [phone] Notes/Report: Yemi Gold See Note Specimen held untested for 24 hours; Call to request Chemistry testing. Reason For Referral No Information Medications Medication SIG (Take, Route, Frequency, Duration) [...] Estrace 0.1 MG/GM as directed Vaginal Not-Taking Calcium + D 600-200 MG-UNIT 1 tablet with food Orally Twice a day Active Reclast 5 MG/100ML as directed Intravenous Active Vitamin B12 1000 MCG 1 tablet Orally Onc e a day for 30 day(s) Active Vitamin D 1000 UNIT 1 tablet Orally Once a day for 30 day(s) Active Immunizations Vaccine Route Administration Date Status Comme nts Flu Vaccine Unknown 08/03/2011 Administered Flu Vaccine Unknown 08/22/2012 Administered Flu Vaccine IM Intramuscular 08/28/2013 Administered Flu Vaccine IM Intramuscular 09/16/2014 Administered zFluzone Quadrivalent IM Intramuscular 10/20/2015 Administered Flu Vaccine IM Intramuscular 08/02/2016 Administered [place] Flu Vaccine Unknown 08/19/2017 Administered pt was give n the vaccine at work, by Mariam. Fluarix Quadrivalent IM Intramuscular 08/20/2018 Administered Pt was given th e vaccine at [facility]. TDaP IM Intramuscular 11/11/2018 Administered pt was given the vaccine at [facility] in [place]. MMR IM Intramuscular 07/08/2019 Administered pt was given the vaccine at [facility]. Fluarix Quadrivalent IM Intramuscular 07/08/2019 Administered pt was given th e vaccine at [facility] in [place] Fluarix Quadrivalent Unknown 08/01/2020 Administered Mariam Hepatitis A (adult) Unknown 08/01/2020 Administered Cherri hilario Covid Vaccine Unknown 12/30/2020 Administered Moderna SARS-COV-2 Moderna Unknown 01/29/2021 Administered Fluarix Quadrivalent IM Intramuscular 07/21/2021 Administered SARS-COV-2 Moderna Unknown 08/25/2021 Administered Fluarix Quadrivalent IM Intramuscular 07/24/2022 Administered Social History Tobacco Use: Social History Observation Description Date Details (start date - stop date) Never Smoker NA - NA Tobacco Use/Smoking Question Answer Notes Patient is a nonsmoker Additional Findings: Tobacco Non-User Cu rrent non-smoker, currently using no form of tobacco Alcohol Screen Question Answer Notes Did you have a drink containing alcohol in the p ast year? No Points 0 Interpretation Negative Problems Problem Type SNOMED Code ICD Code Onset Dates Problem Status W/U Status Risk Notes Problem 727092185 Malignant neopla sm of endometrium (C54.1) Active confirmed Problem 81567291 Osteoporosis (M81.0) Active confirmed Problem 27724106 Iron deficiency anemia, unspecified iron deficiency anemia type (D50.9) Active confirmed Problem 413789599 Pure hypercholesterolemia (E78.00) Active confirmed Problem 97362955 Bilateral carpal tunnel syndrome (G56.03) Active confirmed Problem 50555238 Shane's thyroiditis (E06.3) Active confirmed Problem 199426319540282 Meralgia paresth etica of right side (G57.11) Active confirmed Vital Signs Temperature 100 degrees Fahrenheit 04/27/2024 weigh t at home is 125 BP not taken at home temp is 100 Blood pressure diastolic 58 mm Hg 02/06/2024 denzel ght is down 4 pounds since 02-04-23 Height 61 in 11/10/2024 weight at home is 121 BP not taken no temp Blood pressure systolic 102 mm Hg 02/06/2024 weig ht is down 4 pounds since 02-04-23 Weight 120 lbs 11/10/2024 weight at home is 121 BP not taken no temp BMI 22.67 kg/m2 11/10/2024 weight at home is 121 BP not taken no temp Encounters Encounter Location Date Provider Diagnosis Barrera Wood MD [address] [place] [id number] 02/04/2025 Barrera Wood Blood tests for rout ine general physical examination Z00.00 ; Pure hypercholesterolemia E78.00 ; Shane's thyroiditis E06.3 and Iron deficiency anemia, unspecified iron deficiency anemia type D50.9 Barrera Wood MD [address] [place] [id number] 02/06/2024 Barrera Wood Osteoporosis M81.0 ; Annual physical exam Z00.00 ; Pure hypercholesterolemia E78.00 ; Iron deficiency anemia, unspecified iron deficiency anemia type D50.9 ; Malignant neoplasm of endometrium C54.1 and Depression screening Z13.31 Barrera Wood MD [address] [place] [id number] 04/27/2024 Barrera Wood COVID-19 U07.1 Barrera Wood MD [address] [place] [id number] 11/10/2024 Barrera Wood Acute diarrhea R19.7 Barrera Wood MD [address] [place] [id number] 04/28/2024 Barrera Wood MD [address] [place] [id number] 05/15/2024 Barrera Wood MD [address] [place] [id number] 02/18/2024 Barrera Wood MD [address] [place] [id number] 04/30/2024 Barrera Wood MD [address] [place] [id number] 04/30/2024 Barrera Wood MD [address] [place] [id number] 07/28/2024 Barrera Wood MD [address] [place] [id number] 07/30/2024 Barrera Wood MD [address] [place] [id number] 08/06/2024 Barrera Wood MD [address] [place] [id number] 09/23/2024 Barrera Wood Assessments Encounter Date Diagnosis (ICD Code) Assessment Notes Treatment Notes Treatment Clinical Notes Section Notes 02/04/20[address] ine general physical examination (ICD-10 - Z00.00) 02/06/2024 Osteoporosis (ICD-10 - M81.0) has gone to multiple specialists and is still in the process of deciding the treatment. is being followed by endocrine. 02/06/2024 Annual physical exam (ICD-10 - Z00.00) labs reviewed and discussed with patient 04/27/2024 COVID-19 (ICD-10 - U07.1) we talked about the pro and cons of paxlovid and she does not appear sick so will observe. she seems to be getting better already. if she starts getting sicker we can send in the paxlovid 11/10/2024 Acute diarrhea (ICD- 10 - R19.7) is getting better so no treatment needed and no cultures necessary although would not go to cooking class in 3 days 02/04/2025 Pure hypercholesterolemia (ICD-10 - E78.00) 02/06/2024 Pure hypercholesterolemia (ICD-10 - E78.00) not high enough to treat. will observe 02/04/2025 Shane's thyroidi tis (ICD-10 - E06.3) 02/06/2024 Iron deficiency anem ia, unspecified iron deficiency anemia type (ICD-10 - D50.9) iron is normal and not taking any iron 02/04/2025 Iron deficiency anem ia, unspecified iron deficiency anemia type (ICD-10 - D50.9) 02/06/2024 Malignant neoplasm o f endometrium (ICD-10 - C54.1) has been 2 years and no recurrence. followed by manager gyn 02/06/2024 Depression screening (ICD-10 - Z13.31) negative screen Plan Of Treatment Pending Test Test Name Order Date Electrocardiogram (EKG) 11/15/2016 Electrocardiogram (EKG) 12/06/2017 Electrocardiogram (EKG) 08/03/2011 Electrocardiogram (EKG) 12/12/2018 Electrocardiogram (EKG) 10/20/2015 MAMMOGRAM DIGITAL BILATERAL SCREEN 01/03 Complete Blood Count Auto Diff 5 Comprehensive [place]. Panel Fast 5 IRON PROFILE 02/04/2025 Lipid Panel 02/04/2025 TSH reflex Free T4 02/04/2025 Hold Gold 02/04/2025 UA ClnCatch+Micro w/rflx Cult 02/04/2025 Next Appt Details Provider Name:Barrera dennison, 02/08/2025 01:00:00 PM, [address] [place] [address], [address], [place], [place], [phone], Insurance Providers Payer Name Payer Address Payer Phone Subscriber Number Group Number Insured Name Patient Relationship to Insured Coverage Start Date Coverage End Date [employer] [address] [place], [place] [id number] [phone] [id number] Michelle Velazco Self - patient is the insured Medical (General) History Medical History History ICD Code colonoscopy 02/07/[address] Mauricio @ [facility] - due in 10 years colonoscopy 2021 negative not going to have another: 06/22/22 stabe, repeat 10yrs bone density 08/2012 (followed by Dr. Kelin martinez); 09/2014 (repeat 1-2 yrs) colposcopy 2019 negative mvexxy is an estrogen suppository needs shingrix
[2025-02-04 12:04] LABS: Bacteria Urine None Seen (None Seen); Hyaline Casts Urine 0-2 /LPF (0-2); RBC Urine 0-2 /HPF (0-2); Squamous Epithelial Cell Urine 0-2 /HPF (0-2); UACC Culture Trigger YES; WBC Urine 0-5 /HPF (0-5)
== END 2025-02-04 10:10 | disposition home or self-care (01) ==
LOC: HO.LNP 10:09
PROVIDERS: Visit Provider Internal Medicine
DX: Z00.00 Encounter for general adult medical examination without abnormal findings (principal); E78.00 Pure hypercholesterolemia, unspecified; E06.3 Autoimmune thyroiditis; D50.9 Iron deficiency anemia, unspecified
CPT/HCPCS: 80053; 80061; 81001; 83540; 84443; 85025; 87086